=== PATIENT | male | born 2000 | race African-American/Black ===

== ENCOUNTER 2024-06-27 10:31 | Emergency (ER) | payer MEDICAID ==
[~2024-06-27] VITALS: Ht 170.2 cm; Wt 99.8 kg
[2024-06-27 10:32] VITALS: BP 115/55; TEMP 38.9; O2SAT 100
[2024-06-27 10:33] VITALS: PULSE 67; RESP 16; O2SAT 98
[2024-06-27 13:51] LABS: HEMATOCRIT. 45.9 % (42.0-52.0); HEMOGLOBIN. 15.1 g/dL (14.0-18.0); MEAN CORPUSCULAR HEMOGLOBIN 28.4 pg (28.0-32.0); MEAN CORPUSCULAR HGB CONC 32.8 g/dL (31.0-37.0); MEAN CORPUSCULAR VOLUME 86.5 fL (80.0-94.0); MEAN PLATELET VOLUME 9.2 fl (7.4-10.4); PLATELET 245 x1000/uL (130-400); RED BLOOD CELL COUNT 5.31 mill/uL (4.7-6.1); RED CELL DISTRIBUTION WIDTH 13.1 % (11.6-14.6); WHITE BLOOD COUNT 9.4 x1000/uL (4.5-11.0)
[2024-06-27 13:57] LABS: CHLORIDE 103 mEq/L (98-107); POTASSIUM 3.7 mEq/L (3.5-5.1); SODIUM 140 mEq/L (136-145)
[2024-06-27 13:58] LABS: CALCIUM 9.9 mg/dL (8.7-10.4); CARBON DIOXIDE 24 mEq/L (21-32)
[2024-06-27 13:59] LABS: INR 1.1; PROTHROMBIN TIME 11.8 sec (9.6-11.0)
[2024-06-27 14:02] LABS: DIFFERENTIAL COMMENT 1
[2024-06-27 14:03] LABS: CREATININE 1.6 mg/dL (0.6-1.3); GLUCOSE 100 mg/dL (70-105); UREA NITROGEN BLOOD 9 mg/dL (9-23)
[2024-06-27 14:19] LABS: TROPONIN I HIGH SENSITIVITY < 4 ng/L (3.0-53)
[2024-06-27 14:21] LABS: PLATELET ESTIMATE NORMAL
[2024-06-27 14:33] LABS: CLARITY URINE CLEAR (CLEAR); COLOR URINE DARK YELLOW (YELLOW); GLUCOSE URINE NEGATIVE (NEGATIVE); KETONES URINE 1+ (NEGATIVE); LEUKOCYTE ESTERASE URINE TRACE (NEGATIVE); NITRITE URINE NEGATIVE (NEGATIVE); OCCULT BLOOD URINE NEGATIVE (NEGATIVE); PH URINE 7.5 (4.5-8.0); PROTEIN URINE 1+ (NEGATIVE); SPECIFIC GRAVITY URINE 1.033 (1.005-1.030)
[2024-06-27] MEDS ORDERED: ACET-2708 MT (14:41)
[2024-06-27 15:01] LABS: MUCUS URINE 1+ /lpf (NONE/TRACE)
[2024-06-27 15:02] LABS: SQUAMOUS EPITHELIAL CELL URINE FEW /lpf (RARE/1+)
[2024-06-27 15:03] LABS: BACTERIA URINE 1+; RBC URINE NONE SEEN /hpf (0-2); WBC URINE 0-2 /hpf (0-2)
== END 2024-06-27 14:47 | disposition home or self-care (01) ==
LOC: ER 10:31
DX: R51.9 Headache, unspecified (principal); R07.89 Other chest pain; R06.02 Shortness of breath; Z98.890 Other specified postprocedural states
CPT/HCPCS: 36415; 70260; 71045; 72050; 74018; 80048; 81003; 84484; 85025; 93005; 99285